=== PATIENT | male | born 1985 | race African-American/Black ===

== ENCOUNTER 2017-05-01 07:13 | Inpatient (IN) | payer OTHER ==
[~2017-05-01] VITALS: Ht 175.3 cm; Wt 98.0 kg
[~2017-05-01 07:13] MED LIST: BLOOD PRESSURE MED PO; CIPRO500 MG PO; CREON 241 CAPSULE PO; FLAGYL500 MG PO; FOLIC ACID1 MG PO; LEVAQUIN750 MG PO; LOPRESSOR25 MG PO; NAUSEA MED PO; NICOTINE PATCH1 EAC2 TD; NORCO 5/3251 TABLET PO; ONDANSETRON HCL4 MG PO; ONDANSETRON4 MG/2 ML IV; OXAYDO5 MG PO; OXYCODONE HCL5 MG PO; OXYCODONE-APAP1 EACH PO; PANTOPRAZOLE SO40 MG PO; PERCOCET 5/31 TABLET PO; SENNA PLUS TAB1 EACH PO; THIAMINE HCL100 MG PO; TYLENOL EXTRA500 MG PO; Thiamine,Vitamin B1 PO
[2017-05-01 08:44] LABS: MCH 31.3 PG (29.0-34.0); MCHC 33.3 G/DL (30.0-36.0); MEAN PLAT.VOLUME 9.7 uM^3 (9.0-12.4); PLATELET COUNT 249 K/uL (156-360); RBC DIS.WIDTH-CV 13.6 % (11.8-14.6); RBC DIS.WIDTH-SD 47.1 % (39-53); RED BLOOD COUNT 4.47 M/uL (4.00-5.50)
[2017-05-01 08:54] LABS: CHLORIDE 107 mEq/L (99-109); POTASSIUM 3.6 mEq/L (3.7-5.4); SODIUM 139 mEq/L (136-147)
[2017-05-01 08:56] LABS: GLUCOSE 109 mg/dL (70-99)
[2017-05-01 08:58] LABS: ANION GAP 10 MEQ/L (2-14)
[2017-05-01 09:00] LABS: ALKALINE PHOSPHATASE 76 IU/L (3-129); GFR ESTIMATE (CALCULATED) > 59 mL/min/
[2017-05-01 09:01] LABS: UREA NITROGEN (BUN) 11 mg/dL (9-23)
[2017-05-01 09:03] LABS: LIPASE 215 U/L (1.0-51.0)
[2017-05-01 11:44] LABS: ADD MIUA? NO; BILIRUBIN NEGATIVE; BLOOD NEGATIVE; COLOR YELLOW ((YELLOW)); GLUCOSE (STRIP) NEGATIVE; KETONES 20; LEUKOCYTES NEGATIVE; NITRITE NEGATIVE; PROTEIN (STRIP) NEGATIVE; SPECIFIC GRAVITY 1.044 (1.000-1.030); UCUL ADDED? NO; UROBILINOGEN 0.2 MG/DL (0.2-1.0)
[2017-05-01 16:51] VITALS: BP 204/101
[2017-05-01 20:18] VITALS: BP 171/99
[2017-05-02] VITALS (12 sets, daily range): BP systolic 142–183; BP diastolic 75–120
[2017-05-02 05:56] LABS: HEMATOCRIT 42.5 % (38.0-50.0); MCH 32.6 PG (29.0-34.0); MCHC 34.1 G/DL (30.0-36.0); MCV 95.5 FL (86-99); MEAN PLAT.VOLUME 9.5 uM^3 (9.0-12.4); PLATELET COUNT 250 K/uL (156-360); RED BLOOD COUNT 4.45 M/uL (4.00-5.50); WHITE BLOOD COUNT 7.3 K/uL (4.1-10.2)
[2017-05-02 06:21] LABS: ANION GAP 8 MEQ/L (2-14); CHLORIDE 105 MEQ/L (99-109); GFR ESTIMATE (CALCULATED) > 59 mL/min/; GLUCOSE 122 mg/dL (70-99); POTASSIUM 3.9 MEQ/L (3.7-5.4); SAMPLE HEMOLYSIS CHECK 0; SAMPLE ICTERIC CHECK 0; SAMPLE LIPEMIA CHECK 0; SODIUM 138 MEQ/L (136-147); UREA NITROGEN (BUN) 5 mg/dL (9-23)
[2017-05-02 07:56] LABS: LIPASE 253 U/L (1.0-51.0)
[2017-05-03] VITALS (9 sets, daily range): BP systolic 123–178; BP diastolic 79–112
[2017-05-04 09:35] VITALS: BP 142/80
[2017-05-04 11:27] LABS: HEMATOCRIT 42.1 % (38.0-50.0); MCH 32.3 PG (29.0-34.0); MCHC 33.5 G/DL (30.0-36.0); MCV 96.6 FL (86-99); MEAN PLAT.VOLUME 9.4 uM^3 (9.0-12.4); PLATELET COUNT 222 K/uL (156-360); RBC DIS.WIDTH-SD 49.3 % (39-53); RED BLOOD COUNT 4.36 M/uL (4.00-5.50); WHITE BLOOD COUNT 6.1 K/uL (4.1-10.2)
[2017-05-04 11:58] LABS: ANION GAP 8 MEQ/L (2-14); CHLORIDE 106 MEQ/L (99-109); POTASSIUM 3.8 MEQ/L (3.7-5.4); SAMPLE HEMOLYSIS CHECK 0; SAMPLE ICTERIC CHECK 0; SAMPLE LIPEMIA CHECK 0; SODIUM 137 MEQ/L (136-147)
[2017-05-04 12:50] LABS: GFR ESTIMATE (CALCULATED) > 59 mL/min/; GLUCOSE 117 mg/dL (70-99); LIPASE 56 U/L (1.0-51.0); UREA NITROGEN (BUN) 3 mg/dL (9-23)
[2017-05-04 12:55] VITALS: BP 135/79
== END 2017-05-04 15:07 | disposition left against medical advice (07) | DRG 439 ==
LOC: EME 07:13 → EDOF 11:19 → 5SOUTH 11:19
PROVIDERS: Internal Medicine; Nurse Practitioner Adult Health
DX: K85.90 Acute pancreatitis without necrosis or infection, unspecified (principal); F17.200 Nicotine dependence, unspecified, uncomplicated; Z86.711 Personal history of pulmonary embolism; I10 Essential (primary) hypertension; K59.00 Constipation, unspecified; F10.239 Alcohol dependence with withdrawal, unspecified
CPT/HCPCS: 74177; 80048; 80053; 81003; 83690; 83735; 85027; 99281; 99285; J0360; J1170; J1650; J2270; J2405; J3010; J3411; J7030; J7040; S0028

== ENCOUNTER 2017-05-28 07:46 | Inpatient (IN) | payer OTHER ==
[~2017-05-28] VITALS: Ht 175.3 cm; Wt 92.6 kg
[2017-05-28 08:36] LABS: EOSINOPHIL (%) 0.4 % (0-5); HEMATOCRIT 46.3 % (38.0-50.0); IMMATURE GRANULOCYTE (%) 0.3 % (0.0-0.7); INSTRUMENT ABS NEUTROPHIL CT 5.1 K/uL; LYMPHOCYTE COUNT 1.9 K/uL (1.0-2.8); MCH 31.5 PG (29.0-34.0); MCHC 33.7 G/DL (30.0-36.0); MCV 93.3 FL (86-99); MEAN PLAT.VOLUME 10.6 uM^3 (9.0-12.4); MONOCYTE COUNT 0.5 K/uL (0-0.8); NEUTROPHIL (%) 67.1 % (45-76); NEUTROPHIL COUNT 5.1 K/uL (1.8-6.4); PLATELET COUNT 231 K/uL (156-360); RBC DIS.WIDTH-CV 13.5 % (11.8-14.6); RBC DIS.WIDTH-SD 46.2 % (39-53); RED BLOOD COUNT 4.96 M/uL (4.00-5.50); WHITE BLOOD COUNT 7.5 K/uL (4.1-10.2)
[2017-05-28 09:15] LABS: ANION GAP 12 MEQ/L (2-14); CHLORIDE 103 MEQ/L (99-109); POTASSIUM 3.8 MEQ/L (3.7-5.4); SAMPLE HEMOLYSIS CHECK 0; SAMPLE ICTERIC CHECK 0; SAMPLE LIPEMIA CHECK 0; SODIUM 137 MEQ/L (136-147); TOTAL BILIRUBIN 1.1 MG/DL (0.0-1.0)
[2017-05-28 09:20] LABS: ALKALINE PHOSPHATASE 73 IU/L (3-129); GFR ESTIMATE (CALCULATED) > 59 mL/min/; GLUCOSE 105 mg/dL (70-99); LIPASE 106 U/L (1.0-51.0); UREA NITROGEN (BUN) 10 mg/dL (9-23)
[2017-05-28 14:18] VITALS: BP 140/64
[2017-05-28 15:57] VITALS: BP 142/72
[2017-05-28 23:24] VITALS: BP 131/79
[2017-05-29 04:00] VITALS: BP 129/96
[2017-05-29 06:20] LABS: HEMATOCRIT 44.4 % (38.0-50.0); MCH 32.7 PG (29.0-34.0); MCHC 33.6 G/DL (30.0-36.0); MEAN PLAT.VOLUME 9.8 uM^3 (9.0-12.4); PLATELET COUNT 234 K/uL (156-360); RBC DIS.WIDTH-CV 13.8 % (11.8-14.6); RBC DIS.WIDTH-SD 49.6 % (39-53); RED BLOOD COUNT 4.56 M/uL (4.00-5.50); WHITE BLOOD COUNT 8.5 K/uL (4.1-10.2)
[2017-05-29 06:23] LABS: MCV 97.4 FL (86-99)
[2017-05-29 06:37] LABS: ALKALINE PHOSPHATASE 61 IU/L (3-129); ANION GAP 11 MEQ/L (2-14); CHLORIDE 107 MEQ/L (99-109); GFR ESTIMATE (CALCULATED) > 59 mL/min/; GLUCOSE 88 mg/dL (70-99); LIPASE 250 U/L (1.0-51.0); POTASSIUM 3.7 MEQ/L (3.7-5.4); SAMPLE HEMOLYSIS CHECK 0; SAMPLE ICTERIC CHECK 0; SAMPLE LIPEMIA CHECK 0; SODIUM 143 MEQ/L (136-147); UREA NITROGEN (BUN) 8 mg/dL (9-23)
[2017-05-29 06:38] LABS: TOTAL BILIRUBIN 1.6 MG/DL (0.0-1.0)
[2017-05-29 08:07] VITALS: BP 144/90
[2017-05-29 12:11] VITALS: BP 164/103
[2017-05-29 15:40] VITALS: BP 171/93
[2017-05-29 18:17] VITALS: BP 174/89
[2017-05-29 19:44] VITALS: BP 150/100
[2017-05-30] VITALS: BP 162/92
[2017-05-30 03:28] VITALS: BP 140/71
[2017-05-30 07:49] VITALS: BP 143/85
[2017-05-30 09:29] LABS: EOSINOPHIL COUNT 0.2 K/uL (0-0.3); HEMATOCRIT 46.9 % (38.0-50.0); IMMATURE GRANULOCYTE (%) 0.3 % (0.0-0.7); INSTRUMENT ABS NEUTROPHIL CT 4.3 K/uL; LYMPHOCYTE COUNT 2.2 K/uL (1.0-2.8); MCH 33.1 PG (29.0-34.0); MCHC 33.5 G/DL (30.0-36.0); MCV 98.7 FL (86-99); MEAN PLAT.VOLUME 9.9 uM^3 (9.0-12.4); MONOCYTE (%) 7.3 % (3-12); MONOCYTE COUNT 0.5 K/uL (0-0.8); NEUTROPHIL (%) 59.3 % (45-76); NEUTROPHIL COUNT 4.3 K/uL (1.8-6.4); PLATELET COUNT 217 K/uL (156-360); RBC DIS.WIDTH-CV 13.7 % (11.8-14.6); RBC DIS.WIDTH-SD 50.1 % (39-53); RED BLOOD COUNT 4.75 M/uL (4.00-5.50); WHITE BLOOD COUNT 7.3 K/uL (4.1-10.2)
[2017-05-30 10:06] LABS: ALKALINE PHOSPHATASE 68 IU/L (3-129); ANION GAP 11 MEQ/L (2-14); CHLORIDE 102 MEQ/L (99-109); GFR ESTIMATE (CALCULATED) > 59 mL/min/; GLUCOSE 71 mg/dL (70-99); POTASSIUM 4.2 MEQ/L (3.7-5.4); SAMPLE HEMOLYSIS CHECK 2; SAMPLE ICTERIC CHECK 0; SAMPLE LIPEMIA CHECK 0; SODIUM 138 MEQ/L (136-147); TOTAL BILIRUBIN 1.4 MG/DL (0.0-1.0); UREA NITROGEN (BUN) 8 mg/dL (9-23)
[2017-05-30 16:04] VITALS: BP 136/79
[2017-05-30 23:52] VITALS: BP 165/103
[2017-05-31 06:58] LABS: EOSINOPHIL (%) 4.8 % (0-5); EOSINOPHIL COUNT 0.2 K/uL (0-0.3); HEMATOCRIT 40.8 % (38.0-50.0); IMMATURE GRANULOCYTE (%) 0.2 % (0.0-0.7); INSTRUMENT ABS NEUTROPHIL CT 1.9 K/uL; LYMPHOCYTE COUNT 1.6 K/uL (1.0-2.8); MCH 31.5 PG (29.0-34.0); MCHC 33.1 G/DL (30.0-36.0); MCV 95.1 FL (86-99); MEAN PLAT.VOLUME 9.6 uM^3 (9.0-12.4); MONOCYTE (%) 10.2 % (3-12); MONOCYTE COUNT 0.4 K/uL (0-0.8); NEUTROPHIL (%) 45.6 % (45-76); NEUTROPHIL COUNT 1.9 K/uL (1.8-6.4); PLATELET COUNT 200 K/uL (156-360); RBC DIS.WIDTH-CV 13.1 % (11.8-14.6); RED BLOOD COUNT 4.29 M/uL (4.00-5.50); WHITE BLOOD COUNT 4.2 K/uL (4.1-10.2)
[2017-05-31 07:00] LABS: ALKALINE PHOSPHATASE 52 IU/L (3-129); ANION GAP 8 MEQ/L (2-14); CHLORIDE 102 MEQ/L (99-109); GFR ESTIMATE (CALCULATED) > 59 mL/min/; SAMPLE HEMOLYSIS CHECK 0; SAMPLE ICTERIC CHECK 0; SAMPLE LIPEMIA CHECK 0; SODIUM 136 MEQ/L (136-147); UREA NITROGEN (BUN) 5 mg/dL (9-23)
[2017-05-31 07:03] LABS: GLUCOSE 100 mg/dL (70-99); TOTAL BILIRUBIN 1.1 MG/DL (0.0-1.0)
[2017-05-31 07:49] VITALS: BP 142/103
[2017-05-31 09:10] VITALS: BP 135/88
[2017-05-31 15:37] VITALS: BP 152/105
[2017-05-31] MEDS ORDERED: AMLODIPINE BES2.5 MG PO (16:19)
== END 2017-05-31 17:52 | disposition home or self-care (01) | DRG 439 ==
LOC: EME → EDBD 07:46 → EME 07:46 → EDOF 12:42 → 5WEST 12:42 → ENRESERV 12:43 → EDOF 13:04 → 5WEST 14:03 → 5SOUTH 05-29 08:32 → 5WEST 05-29 08:32 → ENRESERV 05-29 08:41 → 5SOUTH 05-29 17:45
PROVIDERS: Emergency Medicine; Hospitalist; Internal Medicine
DX: K85.20 Alcohol induced acute pancreatitis without necrosis or infection (principal); I10 Essential (primary) hypertension; E87.6 Hypokalemia; K86.1 Other chronic pancreatitis; K59.00 Constipation, unspecified; F17.210 Nicotine dependence, cigarettes, uncomplicated; F12.90 Cannabis use, unspecified, uncomplicated; F10.188 Alcohol abuse with other alcohol-induced disorder; E80.6 Other disorders of bilirubin metabolism; J98.11 Atelectasis; Z86.711 Personal history of pulmonary embolism; R74.8 Abnormal levels of other serum enzymes
CPT/HCPCS: 71020; 74177; 80053; 83690; 85025; 85027; 99281; 99285; G0378; J0360; J1170; J1644; J2270; J2405; J3010; J7030; J7050